=== PATIENT | female | born 1975 | race Caucasian/White ===

== ENCOUNTER 2016-07-30 05:45 | Emergency (ER) | payer BC ==
[2016-07-30 07:06] VITALS: BP 178/110
[2016-07-30 08:02] LABS: UA SPECIFIC GRAVITY 1.025 (1.005-1.035); microscopic required? YES
[2016-07-30 08:03] LABS: urine erythrocyte 3+ (NEGATIVE)
== END 2016-07-30 07:06 | disposition home or self-care (01) ==
LOC: ED 05:45
PROVIDERS: Emergency Medicine
DX: N30.01 Acute cystitis with hematuria (principal)
CPT/HCPCS: J0696; J1885